=== PATIENT | female | born 1950 | race African-American/Black ===

== ENCOUNTER 2021-06-28 12:22 | Inpatient (IN) | payer MEDICARE, MEDICAID ==
[~2021-06-28] VITALS: Ht 165.1 cm; Wt 79.9 kg
[~2021-06-28 12:22] MED LIST: VANCOMYCIN 500 MG PREMIX 100 ML IV SCH
[2021-06-28] MEDS ORDERED: SODIUM CHLORIDE 0.9% 1,000 ML IV ONE (13:00)
[2021-06-28 14:43] LABS: BASOPHILS % 0.3 % (0.0-2.0); EOSINOPHILS % 0.1 % (0.0-5.0); HEMATOCRIT. 39.8 % (36.0-48.0); HEMOGLOBIN. 12.6 g/dL (12.0-16.0); LYMPHOCYTES % 12.5 % (20.0-50.0); MEAN CORPUSCULAR HEMOGLOBIN 33.8 pg (28.0-32.0); MEAN CORPUSCULAR VOLUME 106.8 fL (81.0-99.0); MEAN PLATELET VOLUME 7.4 fl (7.4-10.4); MONOCYTES % 6.4 % (2.0-8.0); NEUTROPHILS % 80.7 % (40.0-76.0); PLATELET 280 x1000/uL (130-400); RED BLOOD CELL COUNT 3.73 mill/uL (4.2-5.4); RED CELL DISTRIBUTION WIDTH 16.4 % (11.6-14.6)
[2021-06-28] MEDS ORDERED: ACETAMINOPHEN 650MG SUPP PR ONE (15:30)
[2021-06-28] MEDS ORDERED: PIPERACILLIN/TAZ 3.375G PREMIX 50 ML IV ONE (15:30)
[2021-06-28] MEDS ORDERED: SODIUM CHLORIDE 0.9% 1000ML BAG (SEPSIS BOLUS) IV ONE ×2 (15:30→18:00)
[2021-06-28] MEDS ORDERED: VANCOMYCIN 1 G PREMIX 200 ML IV ONE (15:30)
[2021-06-28 17:09] LABS: CHLORIDE 112 mEq/L (98-107)
[2021-06-28 17:18] LABS: ETHANOL BLOOD < 10 mg/dL
[2021-06-28 17:22] LABS: CREATINE KINASE 398 IU/L (26-192)
[2021-06-28] MEDS ORDERED: CEFTRIAXONE 1 G PREMIX 50 ML IV NR (18:00)
[2021-06-28] MEDS ORDERED: CLONIDINE 0.1MG TABLET PO PRN (19:15)
[2021-06-28] MEDS ORDERED: IPRATROPIUM/ALBUTEROL 0.5-3(2.5)MG/3ML NEB HHN PRN (19:15)
[2021-06-28] MEDS ORDERED: ONDANSETRON HCL 4MG/2ML INJ IV PRN (19:15)
[2021-06-28] MEDS ORDERED: SODIUM CHLORIDE 0.9% 1,000 ML IV SCH (19:30)
[2021-06-28] MEDS ORDERED: PIPERACILLIN/TAZOBACTAM 3.375 G in DEXTROSE 5% WATER 50 ML IV SCH (22:00)
[2021-06-29] VITALS (7 sets, daily range): BP systolic 132–167; BP diastolic 80–102
[2021-06-29] MEDS ORDERED: DEXTROSE 50% WATER 50ML SYRINGE IV PRN (04:30)
[2021-06-29] MEDS: VANCOMYCIN 500 MG PREMIX 100 ML IV SCH ×2 (04:38→19:16)
[2021-06-29] MEDS: PIPERACILLIN/TAZOBACTAM 3.375 G in DEXTROSE 5% WATER 50 ML IV SCH ×3 (05:22→21:31)
[2021-06-29] MEDS: BLOOD SUGAR DIAGNOSTIC STRIP TEST SCH ×2 (05:57→11:14)
[2021-06-29] MEDS: INSULIN LISPRO 100 UNITS/ML SUBCUT SCH ×2 (06:41→11:14)
[2021-06-29 07:20] LABS: CHLORIDE 119 mEq/L (98-107)
[2021-06-29 07:22] LABS: BASOPHILS % 0.5 % (0.0-2.0); EOSINOPHILS % 0.3 % (0.0-5.0); HEMATOCRIT. 29.6 % (36.0-48.0); HEMOGLOBIN. 9.8 g/dL (12.0-16.0); MEAN CORPUSCULAR HEMOGLOBIN 33.9 pg (28.0-32.0); MEAN CORPUSCULAR VOLUME 102.6 fL (81.0-99.0); MEAN PLATELET VOLUME 7.4 fl (7.4-10.4); MONOCYTES % 9.6 % (2.0-8.0); NEUTROPHILS % 76.6 % (40.0-76.0); PLATELET 197 x1000/uL (130-400); RED BLOOD CELL COUNT 2.88 mill/uL (4.2-5.4); RED CELL DISTRIBUTION WIDTH 15.7 % (11.6-14.6)
[2021-06-29 07:28] LABS: LDL CHOLESTEROL 145 mg/dL (5-100)
[2021-06-29 07:31] LABS: HDL CHOLESTEROL 40 mg/dL (40-59)
[2021-06-29] MEDS ORDERED: POTASSIUM CHLORIDE INJ 40 MEQ in DEXT 5% WATER 250 ML IV ONE (10:00)
[2021-06-29] MEDS: POTASSIUM CHLORIDE 20MEQ TABLET SR PO NR ×2 (10:00→10:10)
[2021-06-29] MEDS: SODIUM CHLORIDE 0.45% 1,000 ML IV SCH (11:47)
[2021-06-29] MEDS ORDERED: KCL 20MEQ/100ML PREMIX 100 ML IV SCH (12:00)
[2021-06-29] MEDS ORDERED: POTASSIUM CHLORIDE INJ 40 MEQ in DEXT 5% WATER 250 ML IV NR (12:00)
[2021-06-29] MEDS ORDERED: GABA-532 PO (15:05)
[2021-06-29] MEDS ORDERED: CHOL400D7 PO (15:05)
[2021-06-29] MEDS ORDERED: HYDR-4005 MT (15:05)
[2021-06-29] MEDS ORDERED: AMLO5TAB88 PO (15:05)
[2021-06-29] MEDS ORDERED: MEGE400O5 MT (15:05)
[2021-06-29] MEDS ORDERED: DOCU50LI25 PO (15:05)
[2021-06-29] MEDS ORDERED: PENT400T16 PO (15:05)
[2021-06-29] MEDS ORDERED: METO-396 PO (15:05)
[2021-06-29 15:36] LABS: CLARITY URINE CLEAR (CLEAR); COLOR URINE YELLOW (YELLOW); KETONES URINE TRACE (NEGATIVE); LEUKOCYTE ESTERASE URINE NEGATIVE (NEGATIVE); NITRITE URINE NEGATIVE (NEGATIVE); OCCULT BLOOD URINE 2+ (NEGATIVE); PH URINE 5.5 (4.5-8.0); PROTEIN URINE 2+ (NEGATIVE); UROBILINOGEN URINE 0.2 E.U./dL (0.2-1.0)
[2021-06-29 15:55] LABS: *AMPHETAMINES SCREEN URINE NEGATIVE (NEGATIVE); *BARBITURATES SCREEN URINE NEGATIVE (NEGATIVE); *BENZODIAZEPINES SCREEN URINE NEGATIVE (NEGATIVE); *COCAINE SCREEN URINE NEGATIVE (NEGATIVE); METHADONE URINE SCREEN NEGATIVE (NEGATIVE)
[2021-06-29 15:56] LABS: CANNABINOID URINE SCREEN NEGATIVE (NEGATIVE); OPIATES URINE SCREEN NEGATIVE (NEGATIVE); PHENCYCLIDINE URINE SCREEN NEGATIVE (NEGATIVE)
[2021-06-30] VITALS: BP 129/89
[2021-06-30] MEDS: SODIUM CHLORIDE 0.45% 1,000 ML IV SCH ×3 (00:27→20:17)
[2021-06-30 04:00] VITALS: BP 129/82
[2021-06-30] MEDS: VANCOMYCIN 500 MG PREMIX 100 ML IV SCH ×2 (05:08→20:03)
[2021-06-30] MEDS: PIPERACILLIN/TAZOBACTAM 3.375 G in DEXTROSE 5% WATER 50 ML IV SCH ×3 (06:14→21:05)
[2021-06-30 06:43] LABS: BASOPHILS % 0.8 % (0.0-2.0); EOSINOPHILS % 0.4 % (0.0-5.0); LYMPHOCYTES % 13.2 % (20.0-50.0); MEAN CORPUSCULAR HEMOGLOBIN 34.3 pg (28.0-32.0); MEAN CORPUSCULAR VOLUME 106.1 fL (81.0-99.0); MONOCYTES % 8.8 % (2.0-8.0); NEUTROPHILS % 76.8 % (40.0-76.0); PLATELET 161 x1000/uL (130-400); RED BLOOD CELL COUNT 2.92 mill/uL (4.2-5.4); RED CELL DISTRIBUTION WIDTH 15.6 % (11.6-14.6)
[2021-06-30 06:59] LABS: CHLORIDE 119 mEq/L (98-107)
[2021-06-30] MEDS: KCL 20MEQ/100ML PREMIX 100 ML IV SCH ×2 (10:16→12:56)
[2021-06-30 12:00] VITALS: BP 136/91
[2021-06-30 16:00] VITALS: BP 128/85
[2021-07-01] MEDS: PIPERACILLIN/TAZOBACTAM 3.375 G in DEXTROSE 5% WATER 50 ML IV SCH ×3 (05:15→22:29)
[2021-07-01] MEDS: VANCOMYCIN 500 MG PREMIX 100 ML IV SCH ×2 (05:15→17:04)
[2021-07-01 06:23] LABS: CHLORIDE 117 mEq/L (98-107)
[2021-07-01 08:00] VITALS: BP 121/96
[2021-07-01 12:00] VITALS: BP 138/89
[2021-07-01] MEDS: LORAZEPAM 2MG/ML CPJ IV PRN (12:53)
[2021-07-01] MEDS ORDERED: KCL 20MEQ/100ML PREMIX 100 ML IV NR (13:30)
[2021-07-01 16:00] VITALS: BP 128/81
[2021-07-01] MEDS: SODIUM CHLORIDE 0.45% 1,000 ML IV SCH (17:01)
[2021-07-01] MEDS: ENOXAPARIN 40MG/0.4ML SYR SUBCUT SCH (18:01)
[2021-07-01 20:00] VITALS: BP 127/94
[2021-07-02] VITALS: BP 132/79
[2021-07-02 04:00] VITALS: BP 122/78
[2021-07-02] MEDS: PIPERACILLIN/TAZOBACTAM 3.375 G in DEXTROSE 5% WATER 50 ML IV SCH ×3 (06:01→21:23)
[2021-07-02] MEDS: VANCOMYCIN 500 MG PREMIX 100 ML IV SCH ×2 (06:02→17:11)
[2021-07-02 07:56] LABS: BASOPHILS % 0.3 % (0.0-2.0); EOSINOPHILS % 1.3 % (0.0-5.0); HEMATOCRIT. 30.2 % (36.0-48.0); HEMOGLOBIN. 9.2 g/dL (12.0-16.0); LYMPHOCYTES % 12.7 % (20.0-50.0); MEAN CORPUSCULAR HEMOGLOBIN 34.4 pg (28.0-32.0); MEAN CORPUSCULAR VOLUME 112.4 fL (81.0-99.0); MEAN PLATELET VOLUME 8.5 fl (7.4-10.4); MONOCYTES % 7.1 % (2.0-8.0); NEUTROPHILS % 78.6 % (40.0-76.0); PLATELET 167 x1000/uL (130-400); RED BLOOD CELL COUNT 2.68 mill/uL (4.2-5.4); RED CELL DISTRIBUTION WIDTH 16.3 % (11.6-14.6)
[2021-07-02 07:59] LABS: CHLORIDE 116 mEq/L (98-107)
[2021-07-02 08:00] VITALS: BP 142/92
[2021-07-02 12:00] VITALS: BP 136/95
[2021-07-02 16:00] VITALS: BP 128/86
[2021-07-02] MEDS: ENOXAPARIN 40MG/0.4ML SYR SUBCUT SCH (17:12)
[2021-07-02] MEDS: SODIUM CHLORIDE 0.45% 1,000 ML IV SCH (18:49)
[2021-07-02 20:00] VITALS: BP 134/81
[2021-07-02] MEDS ORDERED: DEXTROSE 50% WATER 50ML SYRINGE IV PRN (21:45)
[2021-07-02] MEDS: INSULIN LISPRO 100 UNITS/ML SUBCUT SCH (23:07)
[2021-07-02] MEDS: BLOOD SUGAR DIAGNOSTIC STRIP TEST SCH (23:07)
[2021-07-03] VITALS: BP 119/75
[2021-07-03 04:00] VITALS: BP 115/64
[2021-07-03] MEDS: VANCOMYCIN 500 MG PREMIX 100 ML IV SCH ×2 (05:14→17:34)
[2021-07-03] MEDS: BLOOD SUGAR DIAGNOSTIC STRIP TEST SCH ×3 (05:14→17:22)
[2021-07-03] MEDS: INSULIN LISPRO 100 UNITS/ML SUBCUT SCH ×3 (06:00→17:22)
[2021-07-03] MEDS: PIPERACILLIN/TAZOBACTAM 3.375 G in DEXTROSE 5% WATER 50 ML IV SCH ×3 (06:31→21:35)
[2021-07-03] MEDS: SODIUM CHLORIDE 0.45% 1,000 ML IV SCH ×2 (06:31→21:58)
[2021-07-03] MEDS ORDERED: BLOOD SUGAR DIAGNOSTIC STRIP TEST SCH (06:40)
[2021-07-03] MEDS ORDERED: INSULIN LISPRO 100 UNITS/ML SUBCUT SCH (07:10)
[2021-07-03 08:30] VITALS: BP 115/79
[2021-07-03 10:05] LABS: BASOPHILS % 0.4 % (0.0-2.0); EOSINOPHILS % 2.2 % (0.0-5.0); HEMATOCRIT. 29.6 % (36.0-48.0); HEMOGLOBIN. 9.7 g/dL (12.0-16.0); LYMPHOCYTES % 13.1 % (20.0-50.0); MEAN CORPUSCULAR HEMOGLOBIN 34.8 pg (28.0-32.0); MEAN PLATELET VOLUME 8.9 fl (7.4-10.4); MONOCYTES % 7.1 % (2.0-8.0); NEUTROPHILS % 77.2 % (40.0-76.0); PLATELET 205 x1000/uL (130-400); RED BLOOD CELL COUNT 2.79 mill/uL (4.2-5.4); RED CELL DISTRIBUTION WIDTH 15.8 % (11.6-14.6)
[2021-07-03 10:30] LABS: CHLORIDE 112 mEq/L (98-107)
[2021-07-03 12:00] VITALS: BP 118/76
[2021-07-03 16:00] VITALS: BP 122/80
[2021-07-03] MEDS: ENOXAPARIN 40MG/0.4ML SYR SUBCUT SCH (17:34)
[2021-07-03] MEDS ORDERED: POTASSIUM CHLORIDE 20MEQ/PACKET PO NR (17:45)
[2021-07-03 20:00] VITALS: BP 109/63
[2021-07-04] VITALS: BP 118/68
[2021-07-04 04:00] VITALS: BP 115/70
[2021-07-04 05:19] LABS: BASOPHILS % 0.4 % (0.0-2.0); HEMATOCRIT. 26.3 % (36.0-48.0); HEMOGLOBIN. 8.8 g/dL (12.0-16.0); LYMPHOCYTES % 12.7 % (20.0-50.0); MEAN CORPUSCULAR HEMOGLOBIN 34.8 pg (28.0-32.0); MEAN CORPUSCULAR VOLUME 104.2 fL (81.0-99.0); MEAN PLATELET VOLUME 8.9 fl (7.4-10.4); MONOCYTES % 8.9 % (2.0-8.0); PLATELET 182 x1000/uL (130-400); RED BLOOD CELL COUNT 2.52 mill/uL (4.2-5.4); RED CELL DISTRIBUTION WIDTH 15.2 % (11.6-14.6)
[2021-07-04 05:26] LABS: CHLORIDE 110 mEq/L (98-107)
[2021-07-04] MEDS: BLOOD SUGAR DIAGNOSTIC STRIP TEST SCH ×4 (05:37→17:42)
[2021-07-04] MEDS: INSULIN LISPRO 100 UNITS/ML SUBCUT SCH ×4 (05:37→17:42)
[2021-07-04 05:43] LABS: FOLIC ACID (FOLATE) SERUM 4.1 ng/mL (>5.38)
[2021-07-04] MEDS ORDERED: POTASSIUM CHLORIDE 20MEQ/PACKET NG NR (07:30)
[2021-07-04 08:00] VITALS: BP 129/82
[2021-07-04 12:00] VITALS: BP 132/91
[2021-07-04] MEDS: SODIUM CHLORIDE 0.45% 1,000 ML IV SCH (12:08)
[2021-07-04] MEDS: LORAZEPAM 2MG/ML CPJ IV PRN (12:28)
[2021-07-04] MEDS ORDERED: LORAZEPAM 0.5MG TABLET PO PRN (15:45)
[2021-07-04 16:00] VITALS: BP 131/76
[2021-07-04 16:55] LABS: TOTAL IRON BINDING CAPACITY 197 ug/dL (250-450)
[2021-07-04] MEDS: FOLIC ACID 1MG TABLET PO SCH (17:47)
[2021-07-04] MEDS: CLOPIDOGREL 75MG TABLET PO SCH (17:48)
[2021-07-04] MEDS: ASPIRIN 81MG TABLET PO SCH (17:48)
[2021-07-04] MEDS: ENOXAPARIN 40MG/0.4ML SYR SUBCUT SCH (17:48)
[2021-07-04 20:00] VITALS: BP 122/83
[2021-07-04] MEDS ORDERED: METOPROLOL TARTRATE 25MG TABLET PO SCH (21:00)
[2021-07-04] MEDS: METOPROLOL TARTRATE 25MG TABLET PO SCH (21:00)
[2021-07-04] MEDS: GABAPENTIN 100MG CAPSULE PO SCH ×2 (21:00→22:00)
[2021-07-04] MEDS: ATORVASTATIN CALCIUM 40MG TABLET PO SCH (21:00)
[2021-07-05] VITALS: BP 110/79
[2021-07-05] MEDS: ATORVASTATIN CALCIUM 40MG TABLET PO SCH ×2 (01:32→22:49)
[2021-07-05] MEDS: SODIUM CHLORIDE 0.45% 1,000 ML IV SCH ×2 (01:33→15:24)
[2021-07-05 04:00] VITALS: BP 127/66
[2021-07-05] MEDS: BLOOD SUGAR DIAGNOSTIC STRIP TEST SCH ×4 (06:00→17:25)
[2021-07-05 07:02] LABS: BASOPHILS % 0.4 % (0.0-2.0); EOSINOPHILS % 2.8 % (0.0-5.0); HEMATOCRIT. 25.9 % (36.0-48.0); HEMOGLOBIN. 8.5 g/dL (12.0-16.0); LYMPHOCYTES % 16.3 % (20.0-50.0); MEAN CORPUSCULAR HEMOGLOBIN 34.4 pg (28.0-32.0); MEAN CORPUSCULAR VOLUME 104.6 fL (81.0-99.0); MEAN PLATELET VOLUME 8.7 fl (7.4-10.4); MONOCYTES % 10.1 % (2.0-8.0); NEUTROPHILS % 70.4 % (40.0-76.0); PLATELET 207 x1000/uL (130-400); RED BLOOD CELL COUNT 2.48 mill/uL (4.2-5.4); RED CELL DISTRIBUTION WIDTH 15.4 % (11.6-14.6)
[2021-07-05 07:14] LABS: CHLORIDE 110 mEq/L (98-107)
[2021-07-05 08:00] VITALS: BP 104/68
[2021-07-05] MEDS: METOPROLOL TARTRATE 25MG TABLET PO SCH ×2 (08:42→22:48)
[2021-07-05] MEDS: INSULIN LISPRO 100 UNITS/ML SUBCUT SCH ×4 (08:51→17:25)
[2021-07-05] MEDS: FOLIC ACID 1MG TABLET PO SCH (08:52)
[2021-07-05] MEDS: GABAPENTIN 100MG CAPSULE PO SCH ×3 (08:52→22:49)
[2021-07-05] MEDS: CLOPIDOGREL 75MG TABLET PO SCH (08:53)
[2021-07-05] MEDS: ASPIRIN 81MG TABLET PO SCH (08:55)
[2021-07-05] MEDS ORDERED: MAGNESIUM 2 G PREMIX 50 ML IV NR ×2 (11:00→19:00)
[2021-07-05 12:00] VITALS: BP 125/76
[2021-07-05 16:00] VITALS: BP 123/77
[2021-07-05] MEDS: ENOXAPARIN 40MG/0.4ML SYR SUBCUT SCH (17:51)
[2021-07-05 18:39] LABS: BG BASE EXCESS -1.7 mmol/L (-2.0-2.0); BG CARBOXYHEMOGLOBIN 0.1 % (0.5-1.5); BG FRACTION INSPIRED OXYGEN 21; BG HCO3 ACT 20.5 mmol/L (22.0-26.0); BG METHEMOGLOBIN 0.3 % (0.0-1.5); BG OXYGEN SATURATION 80.9 % (92.0-98.5); BG OXYHEMOGLOBIN 80.6 % (94.0-97.0); BG PCO2 25.8 mmHg (35.0-45.0); BG PH 7.518 (7.350-7.450); BG PO2 43.6 mmHg (75.0-100.0); BG SAMPLE SITE RIGHT BRACHIAL; BG TOTAL HEMOGLOBIN 8.6 g/dL (12.0-18.0); BG VENT MODE ROOM AIR
[2021-07-05 20:00] VITALS: BP 123/76
[2021-07-05 21:47] LABS: BG BASE EXCESS -0.3 mmol/L (-2.0-2.0); BG CARBOXYHEMOGLOBIN 0.3 % (0.5-1.5); BG DEOXYHEMOGLOBIN 0.5 % (0.0-5.0); BG FRACTION INSPIRED OXYGEN 100; BG HCO3 ACT 21.2 mmol/L (22.0-26.0); BG METHEMOGLOBIN 0.2 % (0.0-1.5); BG OXYGEN SATURATION 99.5 % (92.0-98.5); BG PCO2 24.4 mmHg (35.0-45.0); BG PH 7.556 (7.350-7.450); BG PO2 287.5 mmHg (75.0-100.0); BG SAMPLE SITE RIGHT BRACHIAL; BG TOTAL HEMOGLOBIN 9.2 g/dL (12.0-18.0); BG VENT MODE MASK - NRB
[2021-07-06] VITALS: BP 112/67
[2021-07-06 04:00] VITALS: BP 108/67
[2021-07-06] MEDS: INSULIN LISPRO 100 UNITS/ML SUBCUT SCH ×4 (06:00→18:00)
[2021-07-06] MEDS: BLOOD SUGAR DIAGNOSTIC STRIP TEST SCH ×4 (06:12→18:54)
[2021-07-06] MEDS: GABAPENTIN 100MG CAPSULE PO SCH ×3 (06:17→21:38)
[2021-07-06] MEDS: SODIUM CHLORIDE 0.45% 1,000 ML IV SCH ×2 (06:18→17:29)
[2021-07-06 06:21] LABS: CHLORIDE 107 mEq/L (98-107)
[2021-07-06 07:40] LABS: BASOPHILS % 0.3 % (0.0-2.0); EOSINOPHILS % 2.7 % (0.0-5.0); HEMATOCRIT. 23.6 % (36.0-48.0); HEMOGLOBIN. 7.6 g/dL (12.0-16.0); LYMPHOCYTES % 12.6 % (20.0-50.0); MEAN CORPUSCULAR HEMOGLOBIN 34.7 pg (28.0-32.0); MEAN CORPUSCULAR VOLUME 107.9 fL (81.0-99.0); MEAN PLATELET VOLUME 9.1 fl (7.4-10.4); MONOCYTES % 12.6 % (2.0-8.0); NEUTROPHILS % 71.8 % (40.0-76.0); PLATELET 214 x1000/uL (130-400); RED BLOOD CELL COUNT 2.19 mill/uL (4.2-5.4); RED CELL DISTRIBUTION WIDTH 15.7 % (11.6-14.6)
[2021-07-06 08:00] VITALS: BP 123/80
[2021-07-06] MEDS: METOPROLOL TARTRATE 25MG TABLET PO SCH ×2 (08:32→21:37)
[2021-07-06] MEDS: FOLIC ACID 1MG TABLET PO SCH (08:32)
[2021-07-06] MEDS: CLOPIDOGREL 75MG TABLET PO SCH (08:32)
[2021-07-06] MEDS: ASPIRIN 81MG TABLET PO SCH (08:32)
[2021-07-06 12:00] VITALS: BP_SYST 105; BP_SYST 110; BP_DIAS 77
[2021-07-06] MEDS ORDERED: NALOXONE HCL 0.4MG/ML VIAL IV PRN (12:00)
[2021-07-06] MEDS: MORPHINE SULFATE 2 MG/ML CPJ (NOT FOR IM USE) IV PRN (12:19)
[2021-07-06 13:45] LABS: BG BASE EXCESS -2.1 mmol/L (-2.0-2.0); BG CARBOXYHEMOGLOBIN 0.3 % (0.5-1.5); BG DEOXYHEMOGLOBIN 2.7 % (0.0-5.0); BG FRACTION INSPIRED OXYGEN 21; BG HCO3 ACT 19.6 mmol/L (22.0-26.0); BG METHEMOGLOBIN 0.6 % (0.0-1.5); BG OXYGEN SATURATION 97.3 % (92.0-98.5); BG OXYHEMOGLOBIN 96.4 % (94.0-97.0); BG PCO2 23.2 mmHg (35.0-45.0); BG PH 7.544 (7.350-7.450); BG PO2 96.3 mmHg (75.0-100.0); BG SAMPLE SITE RIGHT RADIAL; BG TOTAL HEMOGLOBIN 8.3 g/dL (12.0-18.0); BG VENT MODE ROOM AIR
[2021-07-06 16:00] VITALS: BP 107/73
[2021-07-06] MEDS: ENOXAPARIN 40MG/0.4ML SYR SUBCUT SCH (17:28)
[2021-07-06 20:00] VITALS: BP 128/83
[2021-07-06] MEDS: ATORVASTATIN CALCIUM 40MG TABLET PO SCH (21:38)
[2021-07-07] VITALS: BP 111/74
[2021-07-07] MEDS: BLOOD SUGAR DIAGNOSTIC STRIP TEST SCH ×4 (00:58→17:32)
[2021-07-07 04:00] VITALS: BP 123/83
[2021-07-07] MEDS: INSULIN LISPRO 100 UNITS/ML SUBCUT SCH ×4 (06:00→17:32)
[2021-07-07] MEDS: SODIUM CHLORIDE 0.45% 1,000 ML IV SCH ×2 (06:12→17:08)
[2021-07-07 08:00] VITALS: BP 140/93
[2021-07-07] MEDS: GABAPENTIN 100MG CAPSULE PO SCH ×3 (08:24→20:57)
[2021-07-07] MEDS: METOPROLOL TARTRATE 25MG TABLET PO SCH ×2 (08:24→20:56)
[2021-07-07] MEDS: FOLIC ACID 1MG TABLET PO SCH (08:24)
[2021-07-07] MEDS: MORPHINE SULFATE 2 MG/ML CPJ (NOT FOR IM USE) IV PRN (08:49)
[2021-07-07 09:32] LABS: CHLORIDE 104 mEq/L (98-107)
[2021-07-07 12:00] VITALS: BP 131/83
[2021-07-07 12:29] LABS: BASOPHILS % 0.4 % (0.0-2.0); EOSINOPHILS % 1.2 % (0.0-5.0); HEMATOCRIT. 24.5 % (36.0-48.0); LYMPHOCYTES % 9.6 % (20.0-50.0); MEAN CORPUSCULAR HEMOGLOBIN 34.3 pg (28.0-32.0); MEAN CORPUSCULAR VOLUME 104.3 fL (81.0-99.0); MEAN PLATELET VOLUME 9.2 fl (7.4-10.4); MONOCYTES % 9.6 % (2.0-8.0); NEUTROPHILS % 79.2 % (40.0-76.0); PLATELET 288 x1000/uL (130-400); RED BLOOD CELL COUNT 2.34 mill/uL (4.2-5.4); RED CELL DISTRIBUTION WIDTH 15.8 % (11.6-14.6)
[2021-07-07 16:00] VITALS: BP 132/92
[2021-07-07] MEDS: ENOXAPARIN 40MG/0.4ML SYR SUBCUT SCH (17:08)
[2021-07-07 20:00] VITALS: BP 143/86
[2021-07-07] MEDS: ATORVASTATIN CALCIUM 40MG TABLET PO SCH (20:49)
[2021-07-08] VITALS: BP 123/84
[2021-07-08 04:00] VITALS: BP 136/70
[2021-07-08] MEDS: INSULIN LISPRO 100 UNITS/ML SUBCUT SCH ×4 (06:00→17:05)
[2021-07-08] MEDS: BLOOD SUGAR DIAGNOSTIC STRIP TEST SCH ×4 (06:57→17:05)
[2021-07-08] MEDS: GABAPENTIN 100MG CAPSULE PO SCH ×3 (07:00→22:42)
[2021-07-08 08:00] VITALS: BP 115/79
[2021-07-08] MEDS: METOPROLOL TARTRATE 25MG TABLET PO SCH ×2 (08:36→22:42)
[2021-07-08] MEDS: SODIUM CHLORIDE 0.45% 1,000 ML IV SCH ×2 (08:36→22:43)
[2021-07-08] MEDS: FOLIC ACID 1MG TABLET PO SCH (08:36)
[2021-07-08] MEDS: MORPHINE SULFATE 2 MG/ML CPJ (NOT FOR IM USE) IV PRN ×2 (10:01→23:53)
[2021-07-08 11:26] LABS: BASOPHILS % 0.5 % (0.0-2.0); EOSINOPHILS % 3.7 % (0.0-5.0); HEMOGLOBIN. 7.7 g/dL (12.0-16.0); LYMPHOCYTES % 8.5 % (20.0-50.0); MEAN CORPUSCULAR HEMOGLOBIN 34.1 pg (28.0-32.0); MEAN CORPUSCULAR VOLUME 105.9 fL (81.0-99.0); MONOCYTES % 8.1 % (2.0-8.0); NEUTROPHILS % 79.2 % (40.0-76.0); PLATELET 300 x1000/uL (130-400); RED BLOOD CELL COUNT 2.27 mill/uL (4.2-5.4); RED CELL DISTRIBUTION WIDTH 15.8 % (11.6-14.6)
[2021-07-08 11:33] LABS: CHLORIDE 101 mEq/L (98-107)
[2021-07-08 12:00] VITALS: BP 119/77
[2021-07-08 16:29] VITALS: BP 115/61
[2021-07-08] MEDS: ENOXAPARIN 40MG/0.4ML SYR SUBCUT SCH (17:10)
[2021-07-08 20:00] VITALS: BP 115/67
[2021-07-08] MEDS: ATORVASTATIN CALCIUM 40MG TABLET PO SCH (22:41)
[2021-07-09] VITALS: BP 139/81
[2021-07-09] MEDS: BLOOD SUGAR DIAGNOSTIC STRIP TEST SCH ×4 (00:28→18:45)
[2021-07-09 04:00] VITALS: BP 149/76
[2021-07-09] MEDS: INSULIN LISPRO 100 UNITS/ML SUBCUT SCH ×4 (06:00→18:00)
[2021-07-09] MEDS: GABAPENTIN 100MG CAPSULE PO SCH ×3 (06:18→21:27)
[2021-07-09 07:04] LABS: BASOPHILS % 0.4 % (0.0-2.0); EOSINOPHILS % 5.6 % (0.0-5.0); HEMATOCRIT. 24.5 % (36.0-48.0); MEAN CORPUSCULAR HEMOGLOBIN 34.6 pg (28.0-32.0); MEAN CORPUSCULAR VOLUME 105.9 fL (81.0-99.0); MEAN PLATELET VOLUME 9.5 fl (7.4-10.4); MONOCYTES % 7.8 % (2.0-8.0); NEUTROPHILS % 77.2 % (40.0-76.0); PLATELET 332 x1000/uL (130-400); RED BLOOD CELL COUNT 2.31 mill/uL (4.2-5.4)
[2021-07-09 07:35] LABS: CHLORIDE 100 mEq/L (98-107)
[2021-07-09 08:00] VITALS: BP 119/75
[2021-07-09] MEDS: METOPROLOL TARTRATE 25MG TABLET PO SCH ×2 (09:15→21:00)
[2021-07-09] MEDS: FOLIC ACID 1MG TABLET PO SCH (09:15)
[2021-07-09] MEDS: ACETAMINOPHEN 325MG TABLET PO PRN (10:17)
[2021-07-09] MEDS: SODIUM CHLORIDE 0.45% 1,000 ML IV SCH ×2 (11:41→21:28)
[2021-07-09] MEDS: MORPHINE SULFATE 2 MG/ML CPJ (NOT FOR IM USE) IV PRN (11:41)
[2021-07-09 12:00] VITALS: BP 132/93
[2021-07-09 16:00] VITALS: BP 118/87
[2021-07-09] MEDS: ENOXAPARIN 40MG/0.4ML SYR SUBCUT SCH (18:45)
[2021-07-09 20:00] VITALS: BP 96/59
[2021-07-09] MEDS: ATORVASTATIN CALCIUM 40MG TABLET PO SCH (21:27)
[2021-07-10] VITALS: BP 102/58
[2021-07-10] MEDS: BLOOD SUGAR DIAGNOSTIC STRIP TEST SCH ×4 (00:13→17:24)
[2021-07-10] MEDS: MORPHINE SULFATE 2 MG/ML CPJ (NOT FOR IM USE) IV PRN ×3 (01:05→13:09)
[2021-07-10 04:00] VITALS: BP 102/57
[2021-07-10 05:26] LABS: CHLORIDE 98 mEq/L (98-107)
[2021-07-10] MEDS: GABAPENTIN 100MG CAPSULE PO SCH ×3 (05:54→21:06)
[2021-07-10] MEDS: INSULIN LISPRO 100 UNITS/ML SUBCUT SCH ×4 (05:58→17:24)
[2021-07-10 06:21] LABS: BASOPHILS % 0.2 % (0.0-2.0); EOSINOPHILS % 2.5 % (0.0-5.0); HEMATOCRIT. 21.4 % (36.0-48.0); HEMOGLOBIN. 7.2 g/dL (12.0-16.0); LYMPHOCYTES % 7.4 % (20.0-50.0); MEAN CORPUSCULAR HEMOGLOBIN 35.2 pg (28.0-32.0); MEAN CORPUSCULAR VOLUME 105.2 fL (81.0-99.0); MEAN PLATELET VOLUME 9.1 fl (7.4-10.4); MONOCYTES % 6.2 % (2.0-8.0); NEUTROPHILS % 83.7 % (40.0-76.0); PLATELET 319 x1000/uL (130-400); RED BLOOD CELL COUNT 2.03 mill/uL (4.2-5.4)
[2021-07-10 08:00] VITALS: BP 119/86
[2021-07-10] MEDS: METOPROLOL TARTRATE 25MG TABLET PO SCH ×2 (10:48→21:06)
[2021-07-10] MEDS: FOLIC ACID 1MG TABLET PO SCH (10:48)
[2021-07-10 12:00] VITALS: BP 127/76
[2021-07-10] MEDS: SODIUM CHLORIDE 0.45% 1,000 ML IV SCH (14:47)
[2021-07-10 16:00] VITALS: BP 110/76
[2021-07-10] MEDS: ENOXAPARIN 40MG/0.4ML SYR SUBCUT SCH (17:24)
[2021-07-10] MEDS: SODIUM CHLORIDE 0.9% 1,000 ML IV SCH (18:08)
[2021-07-10 20:00] VITALS: BP 114/67
[2021-07-10] MEDS: ATORVASTATIN CALCIUM 40MG TABLET PO SCH (21:06)
[2021-07-10] MEDS: PANTOPRAZOLE SODIUM 40 MG/VIAL IV SCH (21:07)
[2021-07-11] VITALS (11 sets, daily range): BP systolic 109–152; BP diastolic 64–108
[2021-07-11] MEDS: SODIUM CHLORIDE 0.9% 1,000 ML IV SCH ×2 (05:30→17:09)
[2021-07-11] MEDS: BLOOD SUGAR DIAGNOSTIC STRIP TEST SCH ×4 (05:44→16:53)
[2021-07-11] MEDS: GABAPENTIN 100MG CAPSULE PO SCH ×3 (06:00→21:01)
[2021-07-11] MEDS: INSULIN LISPRO 100 UNITS/ML SUBCUT SCH ×4 (06:00→18:00)
[2021-07-11 07:57] LABS: CHLORIDE 102 mEq/L (98-107)
[2021-07-11 08:28] LABS: MEAN CORPUSCULAR HEMOGLOBIN 34.4 pg (28.0-32.0); MEAN CORPUSCULAR VOLUME 103.9 fL (81.0-99.0); MEAN PLATELET VOLUME 8.8 fl (7.4-10.4); PLATELET 275 x1000/uL (130-400); RED BLOOD CELL COUNT 1.83 mill/uL (4.2-5.4); RED CELL DISTRIBUTION WIDTH 15.9 % (11.6-14.6)
[2021-07-11] MEDS: FOLIC ACID 1MG TABLET PO SCH (09:00)
[2021-07-11] MEDS: METOPROLOL TARTRATE 25MG TABLET PO SCH ×2 (09:00→21:01)
[2021-07-11 09:28] LABS: HEMOGLOBIN. 6.3 g/dL (12.0-16.0)
[2021-07-11 09:41] LABS: INR 1.2; PARTIAL THROMBOPLASTIN TIME < 21.0 sec (23.4-31.0)
[2021-07-11] MEDS: PANTOPRAZOLE SODIUM 40 MG/VIAL IV SCH ×2 (09:47→21:02)
[2021-07-11] MEDS ORDERED: CEFAZOLIN 1000MG PREMIX 50 ML IV NR (10:00)
[2021-07-11] MEDS ORDERED: PHYTONADIONE 10MG/ML AMP SUBCUT NR (12:30)
[2021-07-11 20:13] LABS: PLATELET ESTIMATE NORMAL
[2021-07-11] MEDS: ATORVASTATIN CALCIUM 40MG TABLET PO SCH (21:01)
[2021-07-12] VITALS: BP 137/63
[2021-07-12] MEDS: BLOOD SUGAR DIAGNOSTIC STRIP TEST SCH ×5 (00:23→17:12)
[2021-07-12 00:28] LABS: HEMATOCRIT 26.1 % (36.0-48.0); HEMOGLOBIN 8.6 g/dL (12.0-16.0)
[2021-07-12 01:10] LABS: INR 1.2; PROTHROMBIN TIME 12.7 sec (9.6-11.0)
[2021-07-12 04:00] VITALS: BP 127/96
[2021-07-12] MEDS: INSULIN LISPRO 100 UNITS/ML SUBCUT SCH ×5 (06:00→17:12)
[2021-07-12] MEDS: GABAPENTIN 100MG CAPSULE PO SCH ×3 (06:00→22:33)
[2021-07-12 07:14] LABS: CHLORIDE 102 mEq/L (98-107)
[2021-07-12 07:28] LABS: HEMATOCRIT. 25.2 % (36.0-48.0); HEMOGLOBIN. 8.5 g/dL (12.0-16.0); MEAN CORPUSCULAR HEMOGLOBIN 33.9 pg (28.0-32.0); MEAN CORPUSCULAR VOLUME 100.4 fL (81.0-99.0); MEAN PLATELET VOLUME 8.8 fl (7.4-10.4); PLATELET 205 x1000/uL (130-400); RED BLOOD CELL COUNT 2.51 mill/uL (4.2-5.4); RED CELL DISTRIBUTION WIDTH 19.8 % (11.6-14.6)
[2021-07-12 08:00] VITALS: BP 142/98
[2021-07-12] MEDS: FOLIC ACID 1MG TABLET PO SCH (08:57)
[2021-07-12] MEDS: METOPROLOL TARTRATE 25MG TABLET PO SCH ×2 (08:57→22:34)
[2021-07-12] MEDS: SODIUM CHLORIDE 0.9% 1,000 ML IV SCH ×2 (08:57→21:58)
[2021-07-12] MEDS: PANTOPRAZOLE SODIUM 40 MG/VIAL IV SCH ×2 (08:57→22:33)
[2021-07-12] MEDS ORDERED: MIDAZOLAM HCL 2 MG/2 ML VIAL ONE ×2 (11:09→11:11)
[2021-07-12] MEDS ORDERED: PROPOFOL 200MG/20ML VIAL IV ONE (11:09)
[2021-07-12] MEDS ORDERED: NALOXONE HCL 0.4MG/ML VIAL IV PRN (14:15)
[2021-07-12] MEDS: HYDROCODONE/ACETAMINOPHEN 5/325MG TABLET PO PRN (14:36)
[2021-07-12 16:00] VITALS: BP 121/76
[2021-07-12 16:30] LABS: INR 1.2; PROTHROMBIN TIME 13.2 sec (9.6-11.0)
[2021-07-12 19:24] LABS: NUCLEATED RED BLOOD CELLS 1 /100 WBC
[2021-07-12 19:25] LABS: PLATELET ESTIMATE NORMAL
[2021-07-12 20:00] VITALS: BP 141/84
[2021-07-12] MEDS: ATORVASTATIN CALCIUM 40MG TABLET PO SCH (22:33)
[2021-07-13] VITALS: BP 101/56
[2021-07-13 04:00] VITALS: BP_SYST 101; BP_SYST 127; BP_DIAS 56; BP_DIAS 75
[2021-07-13] MEDS: BLOOD SUGAR DIAGNOSTIC STRIP TEST SCH ×5 (06:00→23:58)
[2021-07-13] MEDS: INSULIN LISPRO 100 UNITS/ML SUBCUT SCH ×5 (06:00→23:58)
[2021-07-13] MEDS: GABAPENTIN 100MG CAPSULE PO SCH ×3 (06:10→21:26)
[2021-07-13 08:00] VITALS: BP 134/90
[2021-07-13] MEDS: PANTOPRAZOLE SODIUM 40 MG/VIAL IV SCH ×2 (08:27→21:26)
[2021-07-13] MEDS: FOLIC ACID 1MG TABLET PO SCH (08:27)
[2021-07-13] MEDS: HYDROCODONE/ACETAMINOPHEN 5/325MG TABLET PO PRN ×3 (08:28→23:11)
[2021-07-13] MEDS: METOPROLOL TARTRATE 25MG TABLET PO SCH ×2 (08:29→21:26)
[2021-07-13] MEDS: SODIUM CHLORIDE 0.9% 1,000 ML IV SCH ×2 (08:43→21:26)
[2021-07-13 11:54] VITALS: BP 114/71
[2021-07-13 16:00] VITALS: BP 117/84
[2021-07-13 20:00] VITALS: BP 132/91
[2021-07-13] MEDS: ATORVASTATIN CALCIUM 40MG TABLET PO SCH (21:26)
[2021-07-14] VITALS: BP 121/87
[2021-07-14] MEDS: MORPHINE SULFATE 2 MG/ML CPJ (NOT FOR IM USE) IV PRN ×4 (02:14→17:31)
[2021-07-14 04:00] VITALS: BP 137/87
[2021-07-14] MEDS: GABAPENTIN 100MG CAPSULE PO SCH ×3 (05:12→20:50)
[2021-07-14] MEDS: BLOOD SUGAR DIAGNOSTIC STRIP TEST SCH ×4 (05:55→23:40)
[2021-07-14] MEDS: INSULIN LISPRO 100 UNITS/ML SUBCUT SCH ×4 (05:55→23:40)
[2021-07-14 08:21] VITALS: BP 131/75
[2021-07-14] MEDS: FOLIC ACID 1MG TABLET PO SCH (09:15)
[2021-07-14] MEDS: PANTOPRAZOLE SODIUM 40 MG/VIAL IV SCH ×2 (09:15→20:49)
[2021-07-14] MEDS: METOPROLOL TARTRATE 25MG TABLET PO SCH ×2 (09:16→20:50)
[2021-07-14 12:00] VITALS: BP 135/83
[2021-07-14] MEDS: SODIUM CHLORIDE 0.9% 1,000 ML IV SCH (12:20)
[2021-07-14 16:00] VITALS: BP 135/83
[2021-07-14 17:35] LABS: HEMATOCRIT. 29.5 % (36.0-48.0); HEMOGLOBIN. 9.3 g/dL (12.0-16.0); MEAN CORPUSCULAR HEMOGLOBIN 33.2 pg (28.0-32.0); MEAN CORPUSCULAR VOLUME 105.1 fL (81.0-99.0); MEAN PLATELET VOLUME 8.2 fl (7.4-10.4); PLATELET 172 x1000/uL (130-400); RED BLOOD CELL COUNT 2.81 mill/uL (4.2-5.4); RED CELL DISTRIBUTION WIDTH 20.8 % (11.6-14.6)
[2021-07-14 17:47] LABS: CHLORIDE 110 mEq/L (98-107)
[2021-07-14 19:03] LABS: PLATELET ESTIMATE NORMAL
[2021-07-14] MEDS: HYDROCODONE/ACETAMINOPHEN 5/325MG TABLET PO PRN (19:36)
[2021-07-14 20:00] VITALS: BP 98/76
[2021-07-14] MEDS: ATORVASTATIN CALCIUM 40MG TABLET PO SCH (20:50)
[2021-07-15] VITALS: BP 146/108
[2021-07-15] MEDS: MORPHINE SULFATE 2 MG/ML CPJ (NOT FOR IM USE) IV PRN ×5 (00:35→19:28)
[2021-07-15 00:36] VITALS: BP 147/74
[2021-07-15] MEDS: SODIUM CHLORIDE 0.9% 1,000 ML IV SCH ×2 (00:40→18:59)
[2021-07-15 04:00] VITALS: BP 101/70
[2021-07-15] MEDS: GABAPENTIN 100MG CAPSULE PO SCH ×3 (05:03→20:58)
[2021-07-15] MEDS: DIPHENHYDRAMINE 50MG/ML VIAL IV PRN ×4 (05:22→20:58)
[2021-07-15] MEDS: INSULIN LISPRO 100 UNITS/ML SUBCUT SCH ×3 (06:00→17:48)
[2021-07-15] MEDS: BLOOD SUGAR DIAGNOSTIC STRIP TEST SCH ×3 (06:20→17:48)
[2021-07-15 08:00] VITALS: BP 165/95
[2021-07-15] MEDS: METOPROLOL TARTRATE 25MG TABLET PO SCH ×2 (08:45→20:00)
[2021-07-15] MEDS: FOLIC ACID 1MG TABLET PO SCH (08:45)
[2021-07-15] MEDS: HYDROCODONE/ACETAMINOPHEN 5/325MG TABLET PO PRN ×2 (10:02→21:29)
[2021-07-15 12:00] VITALS: BP 131/92
[2021-07-15] MEDS: PANTOPRAZOLE SODIUM 40 MG/VIAL IV SCH ×2 (13:27→20:00)
[2021-07-15 20:00] VITALS: BP_SYST 125; BP_SYST 131; BP_DIAS 73; BP_DIAS 77
[2021-07-15] MEDS: ATORVASTATIN CALCIUM 40MG TABLET PO SCH (20:00)
[2021-07-16] VITALS: BP 125/77
[2021-07-16] MEDS: BLOOD SUGAR DIAGNOSTIC STRIP TEST SCH ×4 (00:56→17:44)
[2021-07-16] MEDS: MORPHINE SULFATE 2 MG/ML CPJ (NOT FOR IM USE) IV PRN ×4 (03:37→18:44)
[2021-07-16] MEDS: SODIUM CHLORIDE 0.9% 1,000 ML IV SCH ×2 (03:38→17:13)
[2021-07-16 04:00] VITALS: BP 129/78
[2021-07-16] MEDS: GABAPENTIN 100MG CAPSULE PO SCH ×3 (05:26→21:28)
[2021-07-16] MEDS: INSULIN LISPRO 100 UNITS/ML SUBCUT SCH ×4 (05:26→17:44)
[2021-07-16 08:00] VITALS: BP 137/92
[2021-07-16] MEDS: METOPROLOL TARTRATE 25MG TABLET PO SCH ×2 (08:57→21:28)
[2021-07-16] MEDS: FOLIC ACID 1MG TABLET PO SCH (08:57)
[2021-07-16] MEDS: PANTOPRAZOLE SODIUM 40 MG/VIAL IV SCH ×2 (09:41→21:28)
[2021-07-16 12:00] VITALS: BP 109/76
[2021-07-16] MEDS: DIPHENHYDRAMINE 50MG/ML VIAL IV PRN ×2 (13:42→18:04)
[2021-07-16 16:00] VITALS: BP 114/73
[2021-07-16 20:00] VITALS: BP 132/102
[2021-07-16] MEDS: ATORVASTATIN CALCIUM 40MG TABLET PO SCH (21:28)
[2021-07-17] VITALS (7 sets, daily range): BP systolic 101–168; BP diastolic 69–89
[2021-07-17] MEDS: BLOOD SUGAR DIAGNOSTIC STRIP TEST SCH ×4 (05:44→17:57)
[2021-07-17] MEDS: INSULIN LISPRO 100 UNITS/ML SUBCUT SCH ×4 (05:45→17:57)
[2021-07-17] MEDS: GABAPENTIN 100MG CAPSULE PO SCH ×3 (06:20→21:19)
[2021-07-17] MEDS: SODIUM CHLORIDE 0.9% 1,000 ML IV SCH ×2 (06:22→21:21)
[2021-07-17] MEDS: FOLIC ACID 1MG TABLET PO SCH (09:55)
[2021-07-17] MEDS: MORPHINE SULFATE 2 MG/ML CPJ (NOT FOR IM USE) IV PRN ×3 (09:55→21:43)
[2021-07-17] MEDS: PANTOPRAZOLE SODIUM 40 MG/VIAL IV SCH ×2 (09:55→21:18)
[2021-07-17] MEDS: METOPROLOL TARTRATE 25MG TABLET PO SCH ×2 (09:56→21:19)
[2021-07-17] MEDS: ATORVASTATIN CALCIUM 40MG TABLET PO SCH (21:19)
[2021-07-18] VITALS: BP 125/89
[2021-07-18] MEDS: MORPHINE SULFATE 2 MG/ML CPJ (NOT FOR IM USE) IV PRN ×3 (03:30→13:43)
[2021-07-18] MEDS: INSULIN LISPRO 100 UNITS/ML SUBCUT SCH ×4 (06:00→17:26)
[2021-07-18] MEDS: GABAPENTIN 100MG CAPSULE PO SCH ×3 (06:02→21:06)
[2021-07-18] MEDS: BLOOD SUGAR DIAGNOSTIC STRIP TEST SCH ×5 (06:05→23:40)
[2021-07-18 08:00] VITALS: BP 152/107
[2021-07-18] MEDS: FOLIC ACID 1MG TABLET PO SCH (09:09)
[2021-07-18] MEDS: PANTOPRAZOLE SODIUM 40 MG/VIAL IV SCH ×2 (09:09→21:05)
[2021-07-18] MEDS: METOPROLOL TARTRATE 25MG TABLET PO SCH ×2 (09:09→21:00)
[2021-07-18] MEDS: SODIUM CHLORIDE 0.9% 1,000 ML IV SCH ×2 (09:09→23:40)
[2021-07-18 12:00] VITALS: BP 131/84
[2021-07-18 16:00] VITALS: BP 137/93
[2021-07-18 20:00] VITALS: BP 134/80
[2021-07-18] MEDS: ATORVASTATIN CALCIUM 40MG TABLET PO SCH (21:06)
[2021-07-18] MEDS ORDERED: HALOPERIDOL LACTATE 5MG/ML VIAL IM PRN (22:15)
[2021-07-19] VITALS: BP 107/51
[2021-07-19] MEDS: DIPHENHYDRAMINE 50MG/ML VIAL IV PRN (00:48)
[2021-07-19] MEDS: ACETAMINOPHEN 325MG TABLET PO PRN (00:48)
[2021-07-19 04:00] VITALS: BP 157/89
[2021-07-19] MEDS: INSULIN LISPRO 100 UNITS/ML SUBCUT SCH ×4 (06:00→18:00)
[2021-07-19] MEDS: BLOOD SUGAR DIAGNOSTIC STRIP TEST SCH ×3 (06:19→18:00)
[2021-07-19] MEDS: GABAPENTIN 100MG CAPSULE PO SCH (06:19)
[2021-07-19 08:00] VITALS: BP 151/106
[2021-07-19] MEDS: FOLIC ACID 1MG TABLET PO SCH (10:34)
[2021-07-19] MEDS: PANTOPRAZOLE SODIUM 40 MG/VIAL IV SCH ×2 (10:34→22:19)
[2021-07-19] MEDS: METOPROLOL TARTRATE 25MG TABLET PO SCH ×2 (10:35→22:22)
[2021-07-19 12:00] VITALS: BP 133/76
[2021-07-19] MEDS: SODIUM CHLORIDE 0.9% 1,000 ML IV SCH (12:57)
[2021-07-19] MEDS: MORPHINE SULFATE 2 MG/ML CPJ (NOT FOR IM USE) IV PRN (14:19)
[2021-07-19 16:00] VITALS: BP 116/87
[2021-07-19] MEDS ORDERED: PERMETHRIN 5% CREAM 60GM TOP NR (17:00)
[2021-07-19 20:00] VITALS: BP 126/96
[2021-07-19] MEDS: ATORVASTATIN CALCIUM 40MG TABLET PO SCH (22:21)
[2021-07-19] MEDS: GABAPENTIN SOLN 300MG/6ML UDC PO SCH (22:38)
[2021-07-20] VITALS: BP 118/88
[2021-07-20 04:00] VITALS: BP 130/76
[2021-07-20] MEDS: GABAPENTIN SOLN 300MG/6ML UDC PO SCH ×3 (05:45→22:03)
[2021-07-20] MEDS: INSULIN LISPRO 100 UNITS/ML SUBCUT SCH ×3 (06:00→12:00)
[2021-07-20] MEDS: BLOOD SUGAR DIAGNOSTIC STRIP TEST SCH ×3 (06:48→12:00)
[2021-07-20] MEDS: SODIUM CHLORIDE 0.9% 1,000 ML IV SCH ×3 (06:49→17:18)
[2021-07-20 08:00] VITALS: BP 104/85
[2021-07-20] MEDS: METOPROLOL TARTRATE 25MG TABLET PO SCH ×2 (09:00→20:59)
[2021-07-20] MEDS: FOLIC ACID 1MG TABLET PO SCH (10:32)
[2021-07-20] MEDS: PANTOPRAZOLE SODIUM 40 MG/VIAL IV SCH ×2 (10:32→20:59)
[2021-07-20 12:00] VITALS: BP 110/80
[2021-07-20 16:00] VITALS: BP 133/103
[2021-07-20 20:00] VITALS: BP 143/98
[2021-07-20] MEDS: DIPHENHYDRAMINE 50MG/ML VIAL IV PRN (20:56)
[2021-07-20] MEDS: ATORVASTATIN CALCIUM 40MG TABLET PO SCH (20:59)
[2021-07-21] VITALS: BP 138/87
[2021-07-21] MEDS: BLOOD SUGAR DIAGNOSTIC STRIP TEST SCH (00:12)
[2021-07-21] MEDS: DIPHENHYDRAMINE 50MG/ML VIAL IV PRN (02:18)
[2021-07-21] MEDS: MORPHINE SULFATE 2 MG/ML CPJ (NOT FOR IM USE) IV PRN ×2 (03:27→12:29)
[2021-07-21] MEDS: GABAPENTIN SOLN 300MG/6ML UDC PO SCH ×2 (05:32→13:25)
[2021-07-21] MEDS: INSULIN LISPRO 100 UNITS/ML SUBCUT SCH ×2 (05:51)
[2021-07-21 08:00] VITALS: BP 119/73
[2021-07-21] MEDS: FOLIC ACID 1MG TABLET PO SCH (09:15)
[2021-07-21] MEDS: PANTOPRAZOLE SODIUM 40 MG/VIAL IV SCH (09:15)
[2021-07-21] MEDS: METOPROLOL TARTRATE 25MG TABLET PO SCH (09:17)
[2021-07-21 12:00] VITALS: BP 125/98
[2021-07-21 16:00] VITALS: BP 123/76
[2021-07-21 20:00] VITALS: BP 139/72
[2021-07-21 20:04] VITALS: BP 139/72
== END 2021-07-21 22:39 | disposition hospice, home (50) | DRG 45 ==
LOC: ER 12:22 → EDBEDREQ 18:18 → EDBEDREQSVC 18:18 → EDBEDREQTM 18:18 → ENRESERV 22:59 → 7EST 06-29 00:35 → 6EST 07-17 11:11
PROVIDERS: ADMIT Internal Medicine; ATTEND Internal Medicine
PROC: 4A10X4Z Monitoring of Central Nervous Electrical Activity, External Approach (ICD-10-PCS; principal; 2021-07-03)
PROC: 05H533Z Insertion of Infusion Device into Right Subclavian Vein, Percutaneous Approach (ICD-10-PCS; 2021-07-09)
PROC: B546ZZA Ultrasonography of Right Subclavian Vein, Guidance (ICD-10-PCS; 2021-07-09)
PROC: 30233N1 Transfusion of Nonautologous Red Blood Cells into Peripheral Vein, Percutaneous Approach (ICD-10-PCS; 2021-07-11)
PROC: 0DH63UZ Insertion of Feeding Device into Stomach, Percutaneous Approach (ICD-10-PCS; 2021-07-12)
DX: I63.9 Cerebral infarction, unspecified (principal); G93.41 Metabolic encephalopathy; I27.21 Secondary pulmonary arterial hypertension; E46 Unspecified protein-calorie malnutrition; R16.0 Hepatomegaly, not elsewhere classified; R13.10 Dysphagia, unspecified; R62.7 Adult failure to thrive; E87.8 Other disorders of electrolyte and fluid balance, not elsewhere classified; D35.00 Benign neoplasm of unspecified adrenal gland; E87.6 Hypokalemia; I10 Essential (primary) hypertension; E53.8 Deficiency of other specified B group vitamins; D64.9 Anemia, unspecified; I71.4 Abdominal aortic aneurysm, without rupture; Z20.822 Contact with and (suspected) exposure to COVID-19; R91.8 Other nonspecific abnormal finding of lung field; R13.12 Dysphagia, oropharyngeal phase; Z85.841 Personal history of malignant neoplasm of brain; Z85.118 Personal history of other malignant neoplasm of bronchus and lung; Z92.3 Personal history of irradiation; Z79.891 Long term (current) use of opiate analgesic; Z79.899 Other long term (current) drug therapy; Z68.29 Body mass index [BMI] 29.0-29.9, adult; Z86.73 Personal history of transient ischemic attack (TIA), and cerebral infarction without residual deficits; I73.9 Peripheral vascular disease, unspecified
CPT/HCPCS: 36415; 36600; 70551; 71045; 73502; 74018; 74176; 76700; 76937; 80048; 80053; 80061; 80202; 80305; 80320; 81003; 82140; 82270; 82375; 82550; 82607; 82728; 82746; 82805; 82962; 83036; 83540; 83550; 83605; 83735; 84145; 84443; 85014; 85018; 85025; 85044; 85049; 85384; 86850; 86900; 86920; 87426; 92610; 93005; 93306; 93880; 93970; 94640; 95816; 97162; 97166; 99291; C1725; C1893; C9113; J0690; J1200; J1650; J1815; J2060; J2250; J2270; J2543; J2704; J3370; J3430; J3475; J3480; J7030; J7040; J7060; P9016; G0480